=== PATIENT | male | born 1970 | race Caucasian/White ===

== ENCOUNTER 2016-06-14 16:19 | Emergency (ER) | payer MEDICAID, OTHER ==
[2016-06-14 16:34] VITALS: BP 00/00
== END 2016-06-14 18:00 | disposition home or self-care (01) ==
LOC: ED 16:19
DX: R07.81 Pleurodynia (principal)
CPT/HCPCS: 99282

== ENCOUNTER 2016-07-26 19:49 | Emergency (ER) | payer OTHER ==
[2016-07-26 20:03] VITALS: BP 146/97
--- NOTE | 2016-07-26 20:14 | UC ---
Knee Pain HPI - HPI Summary HPI Summary: The patient comes in today for: 1. Right knee pain: Onset: "a couple days ago." Palliative/provocative: Sleep makes it better, "sort of." Putting weight on it makes it worse. Tylenol was taken but its value is unknown. Quality: Throbbing at rest. Sharp with standing. Region: Front part of the right knee. Severity: 7/10 Time: Comes and goes. Associated symptoms: Event: No event of injury. He just work up with it. Previous knee problems: None. Previous treatment: Tylenol only maybe helped. He did not complain of any catching or giving away with knee use. * - History of Current Complaint Chief Complaint: UCLowerExtremity Stated Complaint: RIGHT KNEE Time Seen by Provider: 07/26/16 20:03 Hx Obtained From: Patient - Allergies/Home Medications Allergies/Adverse Reactions: Allergies Allergy/AdvReac Type Severity Reaction Status Date / Time environmental allergies Allergy Congestion Uncoded 07/26/16 19:56 PMH/Surg Hx/FS Hx/Imm Hx Previously Healthy: Yes Endocrine History Of: Denies: Diabetes, Thyroid Disease, Hyperthyroidism, Hypothyroidism, Dyslipidemia Cardiovascular History Of: Denies: Cardiac Disorders, Hypertension, Pacemaker/ICD, Myocardial Infarction , Congestive Heart Failure, Atrial Fibrillation, Deep Vein Thrombosis, Bleeding Disorders Respiratory History Of: Denies: COPD, Asthma, Bronchitis, Pneumonia, Pulmonary Embolism GI/ History Of: Denies: Gastroesophageal Reflux, Ulcer, Gastrointestinal Bleed, Gall Bladder Disease, Kidney Stones, Diverticulitis, Renal Disease, Urosepsis Neurological History Of: Denies: TIA, CVA, Dementia, Seizures, Migraine Psychological History Of: Denies: Anxiety, Depression, Bipolar Disorder, Schizophrenia, Post Traumatic Stress Disorder Cancer History Of: Denies: Lung Cancer, Colorectal Cancer, Breast Cancer, Prostate Cancer, Cervical Cancer Other History Of: Negative For: HIV, Hepatitis B, Hepatitis C, Anticoagulant Therapy - Surgical History Surgical History: None - Family History Known Family History: Positive: Diabetes Negative: Cardiac Disease, Hypertension - Social History Occupation: Employed Full-time Alcohol Use: None Substance Use Type: None Substance Use Comment - Amount & 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, Meth- 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, pt denies current substance use Smoking Status (MU): Heavy Every Day Tobacco Smoker Type: Cigarettes Amount Used/How Often: 1/2 ppd Have You Smoked in the Last Year: Yes - Immunization History Most Recent Influenza Vaccination: NONE Most Recent Tetanus Shot: UTD Most Recent Pneumonia Vaccination: Never had Review of Systems Constitutional: Negative Skin: Negative Eyes: Negative ENT: Negative Respiratory: Negative Cardiovascular: Negative Gastrointestinal: Negative Genitourinary: Negative Musculoskeletal: Arthralgia All Other Systems Reviewed And Are Negative: Yes Physical Exam Triage Information Reviewed: Yes Appearance: Well-Appearing, No Pain Distress - He is able to get on and off the examination table with no guarding., Well-Nourished Vital Signs: Initial Vital Signs Temp 98.4 F 07/26/16 19:57 Pulse 76 07/26/16 19:57 Resp 18 07/26/16 19:57 BP 146/97 07/26/16 19:57 Pulse Ox 98 07/26/16 19:57 Vital Signs Reviewed: Yes Eyes: Positive: Conjunctiva Clear. Negative: Discharge ENT: Positive: Hearing grossly normal. Negative: Pharyngeal erythema, Nasal congestion, Nasal drainage, TM bulging, TM dull, TM red, Tonsillar swelling, Tonsillar exudate Dental: Negative: Gross Decay/Caries @, Dental Fracture @ Neck: Positive: Supple, Nontender, No Lymphadenopathy. Negative: Nuchal Rigidity Respiratory: Positive: Lungs clear, No respiratory distress, No accessory muscle use. Negative: Crackles, Wheezing Cardiovascular: Positive: RRR, No Murmur Abdomen Description: Positive: Nontender, No Organomegaly, Soft. Negative: Distended, Guarding Musculoskeletal: Positive: Strength Intact, No Edema, ROM Limited @ - He is not able to fully flex his knee due to pain., Other: - Right knee: No posterior capsule or hamstring tendon tenderness. There is no tenderness to percussion of the patella. There is no laxity of the collateral ligaments or the cruciate ligaments with stress. There is no obvious tenderness to palpation of the anterior lateral or medial meniscus. No joint effusion. Neurological: Positive: Alert, Muscle Tone Normal Psychological: Positive: Age Appropriate Behavior, Consolable Skin: Negative: rashes, breakdown Diagnostics - Radiology No standard instances Xray Interpretation: No Acute Changes Radiology Interpretation Completed By: Radiologist Knee Pain Course/Dx - Course Course Of Treatment: Patient told of negative x-ray findings/read. My recommedation is to avoid injury, rest it, take NSAIDS and see orthopedics if pain still present or no significant recovery. - Differential Dx/Diagnosis Provider Diagnoses: Right knee pain. Discharge - Discharge Plan Condition: Stable Disposition: HOME Patient Education Materials: Knee Pain (ED), Osteoarthritis (ED) Forms: *Work Release Referrals: No Primary Care Phys,NOPCP [Primary Care Provider] - Carlos Juárez MD [Medical Doctor] - 1 Week (See Dr. Juárez next week if you are still having problems and not markedly recovered. If you get worse, please be seen sooner.)
--- NOTE | 2016-07-26 21:19 | RAD ---
INDICATION: 3 days of right patella knee pain COMPARISON: None TECHNIQUE: 4 view radiograph of the right knee. FINDINGS: The visualized bones are well-corticated and properly aligned. The joint spaces are properly maintained. There is no radiographic evidence of joint effusion. There is no acute fracture, dislocation or other focal bony abnormality. IMPRESSION: Normal knee radiograph as described above. If the patient's symptoms persist, follow-up imaging is recommended.
== END 2016-07-26 21:36 | disposition home or self-care (01) ==
LOC: UCCORT 19:49
DX: M25.561 Pain in right knee (principal); F17.210 Nicotine dependence, cigarettes, uncomplicated
CPT/HCPCS: 99212; G0463

== ENCOUNTER 2016-12-25 13:17 | Emergency (ER) | payer SELFPAY ==
[2016-12-25 13:48] VITALS: BP 149/90
--- NOTE | 2016-12-25 15:44 | ED ---
GI/ HPI - HPI Summary HPI Summary: 46 yr old male with infection, abscess pain right side base of penis. Onset a week ago. He shaves the area. Pain is 7/10. Swelling has gotten worse. He had a T Max of 100F over the weekend. Denies dysuria, penile drainage. No other complaints. - History of Current Complaint Chief Complaint: UCGU Time Seen by Provider: 12/25/16 15:17 Stated Complaint: PERSONAL - Additional Pertinent History Primary Care Physician: [id number] - Allergy/Home Medications Allergies/Adverse Reactions: Allergies Allergy/AdvReac Type Severity Reaction Status Date / Time environmental allergies Allergy Congestion Uncoded 12/25/16 13:47 Home Medications: Home Medications NK [No Home Medications Reported] 12/25/16 [History Confirmed 12/25/16] PMH/Surg Hx/FS Hx/Imm Hx Previously Healthy: Yes Endocrine/Hematology History: Denies: Hx Anticoagulant Therapy, Hx Diabetes, Hx Thyroid Disease Cardiovascular History: Denies: Hx Congestive Heart Failure, Hx Deep Vein Thrombosis, Hx Hypertension , Hx Myocardial Infarction, Hx Pacemaker/ICD Respiratory History: Denies: Hx Asthma, Hx Chronic Obstructive Pulmonary Disease (COPD), Hx Lung Cancer, Hx Pneumonia, Hx Pulmonary Embolism GI History: Denies: Hx Gall Bladder Disease, Hx Gastrointestinal Bleed, Hx Ulcer, Hx Urosepsis History: Denies: Hx Kidney Stones, Hx Renal Disease Sensory History: Reports: Hx Contacts or Glasses Opthamlomology History: Reports: Hx Contacts or Glasses Neurological History: Denies: Hx Dementia, Hx Migraine, Hx Seizures, Hx Transient Ischemic Attacks (TIA) Psychiatric History: Reports: Hx Substance Abuse Denies: Hx Anxiety, Hx Depression, Hx Schizophrenia, Hx Bipolar Disorder Infectious Disease History: No Infectious Disease History: Denies: Traveled Outside the [place] in Last 30 Days - Family History Known Family History: Positive: Diabetes Negative: Cardiac Disease, Hypertension - Social History Alcohol Use: None Substance Use Type: Reports: None Substance Use Comment - Amount & 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, Meth- 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, pt denies current substance use Hx Tobacco Use: Yes Smoking Status (MU): Heavy Every Day Tobacco Smoker Type: Cigarettes Amount Used/How Often: 1/2 ppd Length of Time of Smoking/Using Tobacco: 27 YRS Have You Smoked in the Last Year: Yes Review of Systems Positive: Fever Eyes: Negative ENT: Negative Cardiovascular: Negative Positive: other - pain and abscess at base of penis Positive: Other - abscess at base of penis Neurological: Negative All Other Systems Reviewed And Are Negative: Yes Physical Exam Triage Information Reviewed: Yes Vital Signs On Initial Exam: Initial Vitals Temp Pulse Resp BP Pulse Ox 98.8 F 92 20 149/90 99 12/25/16 13:40 12/25/16 13:40 12/25/16 13:40 12/25/16 13:40 12/25/16 13:40 Appearance: Positive: Well-Appearing, No Pain Distress Skin: Positive: Warm Head/Face: Positive: Normal Head/Face Inspection Eyes: Positive: EOMI ENT: Positive: Normal ENT inspection, Pharynx normal, Other - voice is clear and there is no lymphadenopathy.. Negative: Pharyngeal erythema Neck: Positive: Supple, Nontender Respiratory/Lung Sounds: Positive: Clear to Auscultation, Breath Sounds Present Cardiovascular: Positive: RRR. Negative: Murmur Abdomen Description: Positive: Nontender Bowel Sounds: Positive: Present Male Genital Exam: Positive: other - there is an absess at the base of the penis on the right side that extends onto the mons with redness, induration and fluctuance. There is no spontansous drainage.. Negative: inguinal tenderness Musculoskeletal: Positive: Strength/ROM Intact Neurological: Positive: Sensory/Motor Intact, Alert, Oriented to Person Place, Time, CN Intact II-III Psychiatric: Positive: Normal - Mai Coma Scale Best Eye Response: 4 - Spontaneous Best Motor Response: 6 - Obeys Commands Best Verbal Response: 5 - Oriented Diagnostics - Vital Signs Vital Signs Temp Pulse Resp BP Pulse Ox 12/25/16 13:40 98.8 F 92 20 149/90 99 - Laboratory Lab Statement: Any lab studies that have been ordered have been reviewed, and results considered in the medical decision making process. GIGU Course/Dx - Course Course Of Treatment: 46 yr old male with abscess and redness at base of penis and on mons area. 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 I have recommended he go by ER to [facility] since they have urolgogty clinical rehab liaison. And I told him he should not eat in case Urology has to do something or he has to get sedation etc. The patient has refused EMS transport, and he also state he is going to eat. He signed out AMA. - Diagnoses Provider Diagnoses: Abscess of penis Discharge - Discharge Plan Condition: Good Disposition: AGAINST MEDICAL ADVICE
== END 2016-12-25 15:39 | disposition left against medical advice (07) ==
LOC: UCCORT 13:17
DX: N48.21 Abscess of corpus cavernosum and penis (principal); R50.9 Fever, unspecified; F17.210 Nicotine dependence, cigarettes, uncomplicated
CPT/HCPCS: 99212; G0463